=== PATIENT | male | born 1990 ===

== ENCOUNTER 2022-12-07 14:44 | Emergency (ER) | payer SELFPAY ==
[~2022-12-07] VITALS: Ht 190.5 cm; Wt 100.0 kg
[2022-12-07 15:59] VITALS: BP 169/96
== END 2022-12-07 15:13 | disposition left against medical advice (07) ==
LOC: ER 14:44 → EDSEX 14:44 → ER 15:13
DX: F41.9 Anxiety disorder, unspecified (principal); R11.0 Nausea; R51.9 Headache, unspecified; Z53.21 Procedure and treatment not carried out due to patient leaving prior to being seen by health care provider